=== PATIENT | male | born 1960 | race Caucasian/White ===

== ENCOUNTER 2016-09-07 13:19 | Emergency (ER) | payer MEDICAID ==
[2016-09-07 13:31] VITALS: BP 137/79; PULSE 81; RESP 16; TEMP 98.4; O2SAT 93
--- NOTE | 2016-09-07 14:04 | EDPHY ---
H & P Time Seen by Provider: 09/07/16 13:42 HPI/ROS: CHIEF COMPLAINT: Laceration left forearm HISTORY OF PRESENT ILLNESS: 56-year-old male presents to the emergency department by private vehicle with a laceration to his left forearm. The patient states just prior to arrival he was playing with a new pocket knife and accidentally cut his left forearm. The incident happened just prior to arrival. He is right-hand dominant. He believes his tetanus shot is current. He has no other complaints. ROS: Denies numbness or tingling in his fingers, pain in his left wrist or elbow. Past Medical/Surgical History: Depression, hypertension, PTSD, angio Social History: Single and lives in [place] Smoking Status: Heavy smoker Physical Exam: On examination the patient has 3 cm laceration to the volar aspect of the left medial forearm. No active bleeding noted. No evidence of tendon injury. Full range of motion of the left fingers. Normal sensation to light touch with normal 2 point discrimination. Strong radial pulse at the left wrist. No palpable bony tenderness. No evidence of retained foreign body. Constitutional: Initial Vital Signs Temperature (C) 36.9 C 09/07/16 13:29 Heart Rate 81 09/07/16 13:29 Respiratory Rate 16 09/07/16 13:29 Blood Pressure 137/79 H 09/07/16 13:29 O2 Sat (%) 93 09/07/16 13:29 O2 Delivery Mode Room Air Allergies/Adverse Reactions: No Known Allergies Allergy (Verified 09/07/16 13:28) Home Medications: Medication Instructions Recorded ARIPiprazole [Abilify 10 mg (*)] 10 mg PO DAILY 09/27/12 Aspirin EC [Aspirin EC 81 mg (*)] 81 mg PO DAILY 09/27/12 Carvedilol Cr [Coreg Cr] 20 mg PO DAILY 09/27/12 Citalopram [celeXA 20 MG (RX)] 40 mg PO DAILY 09/27/12 Simvastatin [Zocor 40 mg] 40 mg PO DAILY 09/27/12 amLODIPine BESYLATE [Norvasc 10 mg 10 mg PO DAILY 09/27/12 (*)] Lisinopril/Hctz 10/12.5 mg 1 ea PO DAILY 07/23/15 [Zestoretic/Prinzide 10/12.5MG (*)] buPROPion SR [Wellbutrin 150mg SR 300 mg PO DAILY 07/23/15 (*)] MDM/Departure - MDM Procedures: Laceration repair. Verbal consent was obtained from the patient. The 3 cm laceration on the left forearm was anesthetized using 1% lidocaine with epinephrine. The wound was irrigated with saline, draped and explored to its base with a gloved finger. There were no deep structures involved. No tendon injury was identified. The wound was repaired with 4 0 Ethilon, 7 sutures. The wound repair was simple. The procedure was performed by myself. ED Course/Re-evaluation: 56-year-old male presents with forearm laceration. Wound was repaired, see procedure note. The patient was given wound care precautions. - Depart Disposition: Home, Routine, Self-Care Clinical Impression: Laceration of left forearm Qualifiers: Encounter type: initial encounter Qualified Code(s): S51.812A - Laceration without foreign body of left forearm, initial encounter Condition: Good Instructions: Laceration (ED), Care For Your Stitches (ED), Acute Wounds (ED) Additional Instructions: Wound Care Follow-Up: Removal of sutures in 10 days. Suture removal is complimentary in uncomplicated cases. Infection or abnormal findings would require reevaluation by the MD. In that case, you may be billed. Return if you notice any signs or symptoms of infection such as redness, swelling, increased pain, fever, purulent drainage. Referrals: Kellen Tobar PA [Primary Care Provider] - As per Instructions
== END 2016-09-07 14:33 | disposition home or self-care (01) ==
PROC: 0HQEXZZ Repair Left Lower Arm Skin, External Approach (ICD-10-PCS; principal; 2016-09-07)
DX: S51.812A Laceration without foreign body of left forearm, initial encounter (principal); I10 Essential (primary) hypertension; F17.200 Nicotine dependence, unspecified, uncomplicated; Z79.82 Long term (current) use of aspirin; W26.0XXA Contact with knife, initial encounter

== ENCOUNTER 2017-02-10 10:31 | Emergency (ER) | payer MEDICAID ==
[2017-02-10] MEDS ORDERED: NS 500 ML IV ONE (10:54)
[2017-02-10 11:03] LABS: % IMMATURE GRANULYOCYTES 0.3 % (0.0-1.1); ABSOLUTE IMMATURE GRANULOCYTES 0.03 10^3/uL (0.00-0.10); ADD DIFF? NO; ADD MORPH? NO; ADD SCAN? NO; ATYPICAL LYMPHOCYTE FLAG 0 (0-99); FRAGMENT RBC FLAG 0 (0-99); HEMATOCRIT 42.8 % (40.0-51.0); LEFT SHIFT FLG 0 (0-99); LIPEMIA HEMOLYSIS FLAG 90 (0-99); MEAN CELL HEMOGLOBIN 31.8 pg (27.9-34.1); MEAN CELL VOLUME 90.7 fL (81.5-99.8); MEAN PLATELET VOLUME 9.3 fL (8.7-11.7); PLATELET CLUMPS FLAG 0 (0-99); PLATELET COUNT 358 10^3/uL (150-400); RED BLOOD CELL COUNT 4.72 10^6/uL (4.40-6.38); RED CELL DISTRIBUTION WIDTH 15.2 % (11.5-15.2)
--- NOTE | 2017-02-10 11:04 | CPEKG ---
Heart Rate: 74 RR Interval: 811 P-R Interval: 148 QRSD Interval: 108 QT Interval: 404 QTC Interval: 449 P [place]: 59 QRS [place]: 33 T Wave [place]: 50 EKG Severity - ABNORMAL ECG - EKG Impression: SINUS RHYTHM EKG Impression: INCOMPLETE RIGHT BUNDLE BRANCH BLOCK Electronically Signed By: Yazmin Rea 10-Feb-2017 15:04:13
[2017-02-10 11:12] LABS: ANION GAP 16 mEq/L (8-16); CALCIUM 10.2 mg/dL (8.5-10.4); CARBON DIOXIDE 25 mEq/l (22-31); CHLORIDE 104 mEq/L (97-110); CREATININE 0.8 mg/dL (0.7-1.3); GLOMERULAR FILTRATION RATE > 60; GLUCOSE 101 mg/dL (70-100); POTASSIUM 4.3 mEq/L (3.5-5.2); SODIUM 145 mEq/L (134-144)
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
[2017-02-10 11:24] LABS: TROPONIN I < 0.012 ng/mL (0.000-0.034)
[2017-02-10 12:04] LABS: ETHANOL SERUM < 10 mg/dL (0-10)
[2017-02-10] MEDS ORDERED: QUEtiapine FUMARATE 200 MG TAB PO ONE (18:00)
[2017-02-10] MEDS ORDERED: ARIPiprazole 5 MG TAB PO SCH (18:15)
[2017-02-10] MEDS ORDERED: ARIPiprazole 5 MG TAB PO ONE (18:30)
[2017-02-11 06:54] VITALS: TEMP 98.1
[2017-02-11] MEDS ORDERED: ARIPiprazole 10 MG TAB PO ONE (07:41)
[2017-02-11 11:36] VITALS: BP 133/70; PULSE 66; RESP 14; O2SAT 96
[2017-02-11] MEDS ORDERED: ARIPiprazole 5 MG TAB PO ONE (18:00)
== END 2017-02-11 11:35 | disposition home or self-care (01) ==
LOC: EDUNIT#
DX: F33.9 Major depressive disorder, recurrent, unspecified (principal); I25.10 Atherosclerotic heart disease of native coronary artery without angina pectoris; F17.200 Nicotine dependence, unspecified, uncomplicated; E86.9 Volume depletion, unspecified; Z79.82 Long term (current) use of aspirin
CPT/HCPCS: 80305; G0480

== ENCOUNTER 2017-03-25 06:39 | Emergency (ER) | payer MEDICAID ==
[2017-03-25 06:49] VITALS: RESP 16
--- NOTE | 2017-03-25 07:39 | EDPHY ---
H & P Time Seen by Provider: 03/25/17 07:00 HPI/ROS: HPI Cat bite to left hand. 56-year-old male by private vehicle. This patient reports that he was bitten by a cat on the dorsal mid aspect of his left hand 2 days ago. He was seen at [facility] yesterday. He was given a tetanus shot at that time and was started on Augmentin. He reports that he has had 2 doses of Augmentin. He has not taken his morning dose today. He complains of pain to the dorsal aspect of the left hand where he was bitten and he reports that he has developed some redness and swelling to this area. He is not diabetic or immune compromised. ROS: Constitutional: No fever, no chills. No weakness. Musculoskeletal: No back pain. No neck pain. No myalgias or arthralgias. As above. Skin: As above. Neurological: No focal weakness or altered sensation. Past medical history: Coronary artery disease, hypertension, PTSD, depression, shoulder surgery. He is a [facility] client. His primary care is through [facility]. Social history: He is here by himself. He lives in housing provided to him by [employer]. Nonsmoker. Denies IV drugs, alcohol or street drugs. Physical Exam: General Appearance: Alert, no distress. This patient is responding to questions appropriately and in full sentences. This patient appears well- hydrated and well-nourished. Eyes: Pupils equal and round no pallor or injection. No lid edema, erythema or injection. Left hand exam: Significant for 2 scabbed over puncture alfonso about 2.5 cm apart from each other mid dorsal metatarsal area. No associated fluctuance or abscess noted on gross inspection. He does have a diffuse erythema and mild swelling to the dorsal aspect of the hand. This was demarcated with a tissue marker pen. This does not spread beyond the wrist. It only involves the dorsal aspect of the hand and distal wrist. No edema beyond erythema. No circumferential erythema. There is no lymphangitis ache streaking. No axillary lymphadenopathy. The left upper extremity is neurovascularly intact. Respiratory: There are no retractions, lungs are clear to auscultation with good air movement bilaterally. Cardiovascular: Regular rate and rhythm. No murmur. Neurological: Motor sensory function is grossly intact. Cranial nerves are normal. Gait is normal. Skin: Warm and dry, as above, otherwise no rashes.. Extremities are symmetrical. All joints range without pain or impingement except noted. Psychiatric: No agitation. No depression. Database: EKG: Imaging: Left hand x-ray series: Negative for fracture, subluxation, dislocation. No radiopaque foreign body. Interpreted by me. Procedures: Emergency department course: Vital signs reviewed. He is afebrile. Moderately hypertensive. Borderline tachycardic in triage. Not tachycardic on my exam. Area of erythema on the left hand was demarcated with a tissue marker pen. Left hand x-rays to be obtained to evaluate for foreign body. 8:15 a.m., patient re-evaluated. Resting comfortably. Results of x-rays discussed with him. Patient remains afebrile. Vital signs normal at this time. I do not feel he requires admission at this time but close follow-up is necessary. Plan will be to discharge him to home. He has been instructed to continue his Augmentin as prescribed. I will have him return to the emergency department this evening in 12 hr for a recheck of his left hand. He endorses this plan. Immediate return to emergency department precautions reviewed. All of his questions were answered. He was discharged in good condition. Differential Diagnosis: The differential diagnosis on this patient includes but is not limited to left hand cat bite, cellulitis of the left hand. This represents a partial list of diagnoses considered. These considerations are based on history, physical exam , past history, reassessment and diagnostic testing. Smoking Status: Heavy smoker Constitutional: Initial Vital Signs Temperature (C) 36.5 C 03/25/17 06:47 Heart Rate 105 H 03/25/17 06:47 Respiratory Rate 16 03/25/17 06:47 Blood Pressure 151/91 H 03/25/17 06:47 O2 Sat (%) 94 03/25/17 06:47 O2 Delivery Mode Room Air Allergies/Adverse Reactions: No Known Allergies Allergy (Verified 09/07/16 13:28) Home Medications: Medication Instructions Recorded ARIPiprazole [Abilify 10 mg (*)] 10 mg PO DAILY 09/27/12 Aspirin EC [Aspirin EC 81 mg (*)] 81 mg PO DAILY 09/27/12 Carvedilol Cr [Coreg Cr] 20 mg PO DAILY 09/27/12 Citalopram [celeXA 20 MG (RX)] 40 mg PO DAILY 09/27/12 Simvastatin [Zocor 40 mg] 40 mg PO DAILY 09/27/12 amLODIPine BESYLATE [Norvasc 10 mg 10 mg PO DAILY 09/27/12 (*)] Lisinopril/Hctz 10/12.5 mg 1 ea PO DAILY 07/23/15 [Zestoretic/Prinzide 10/12.5MG (*)] buPROPion SR [Wellbutrin 150mg SR 300 mg PO DAILY 07/23/15 (*)] Departure - Departure Disposition: Home, Routine, Self-Care Clinical Impression: Cat bite of left hand, Cellulitis of left hand Condition: Good Instructions: Cellulitis (ED), Animal Bite (ED) Additional Instructions: Read and follow provided instructions. Return to the emergency department this evening at 8:00 p.m. for recheck of your left hand as discussed. It is very important you do this. Take medication as prescribed. Continue Augmentin twice daily. Take your next dose this evening at 6:00 p.m.. It is very important you take this medication. Ibuprofen dosin mg every 6 hours with meals for the next 3 days only. Return to the emergency department immediately for redness and swelling spreading up your arm, fever, worsening pain or other serious concerns. Referrals: Kellen Tobar PA [Primary Care Provider] - As per Instructions
[2017-03-25 08:41] VITALS: BP 154/90; PULSE 91; TEMP 99; O2SAT 93
== END 2017-03-25 08:40 | disposition home or self-care (01) ==
DX: S61.452A Open bite of left hand, initial encounter (principal); L03.114 Cellulitis of left upper limb; I25.10 Atherosclerotic heart disease of native coronary artery without angina pectoris; I10 Essential (primary) hypertension; F17.200 Nicotine dependence, unspecified, uncomplicated; Z79.82 Long term (current) use of aspirin; W55.01XA Bitten by cat, initial encounter

== ENCOUNTER 2017-03-25 19:37 | Inpatient (IN) | payer MEDICAID ==
--- NOTE | 2017-03-25 20:58 | EDPHY ---
H & P Stated Complaint: cat bite- [facility] Source: Patient, Family - Personal History Current Tetanus/Diphtheria Vaccine: Yes - Medical/Surgical History Hx Asthma: No Hx Chronic Respiratory Disease: No Hx Diabetes: No Hx Cardiac Disease: Yes Hx Renal Disease: No Hx Cirrhosis: No Hx Alcoholism: No Hx HIV/AIDS: No Hx Splenectomy or Spleen Trauma: No Other PMH: ANGIO 8 YRS AGO;HTN;PTSD;DEPRESSION. PSH- L SHLDR, R SHOULDER - Social History Smoking Status: Heavy smoker Time Seen by Provider: 03/25/17 20:58 HPI/ROS: HPI: This is a 56-year-old male who presents with Chief Complaint: Cat bite follow-up Location: Left hand Quality: Cat bite Duration: 2 days Signs and Symptoms: No bleeding, no radiation, no numbness, no weakness, no tingling, + decreased range of motion, + swelling, + pain Timing: Worsening Severity: Moderate to severe Context: Patient is right-hand dominant, he was bitten by a Cat on the dorsal left hand 2 days ago. He returns today for wound check. He reports that the redness is worsening along with worsening decreased range of motion. He has been taking Augmentin 875 twice daily x2 days without relief. He was seen in the emergency room approximately 12 hr ago and advised to return for follow-up. Patient was seen at [facility] yesterday and given a tetanus shot and started on Augmentin for which he reports compliance. Modifying Factors: See above Comment: ROS: see HPI Constitutional: No fever, no chills, no weight loss Eyes: No blurred vision Respiratory: No shortness of breath, no cough Cardiovascular: No chest pain Gastrointestinal: No nausea, no vomiting no diarrhea Genitourinary: No dysuria Extremities: No myalgias Neurologic: No weakness, no numbness Skin: No rashes Hematologic: No bruising, no bleeding MEDICAL/SURGICAL/SOCIAL HISTORY: Medical history: Coronary artery disease, hypertension, PTSD, depression. PCP is [facility]. Surgical history: Shoulder surgery Social history: Lives in housing provided by [facility]. Nonsmoker. Denies IV drug use, alcohol or street drugs. CONSTITUTIONAL: Pleasant nontoxic appearing adult white male, awake and alert, no obvious distress HEENT: Atraumatic and normocephalic, PERRL, EOMI. Tympanic membranes clear. Oropharynx clear, no exudate and moist pink mucosa. Airway patent. No lymphadenopathy. No meningismus. Cardiovascular: Normal S1/S2, regular rate, regular rhythm, without murmur rub or gallop. PULMONARY/CHEST: Symmetrical and nontender. Clear to auscultation bilaterally. Good air movement. No accessory muscle usage. ABDOMEN: Soft, nondistended, nontender, no rebound, no guarding, no peritoneal signs, no masses or organomegaly. No CVAT. EXTREMITIES: 2/2 radial pulses, strength 5/5, left dorsal mid aspect of left hand extending into all 5 fingers shows moderate erythema; 2 scabbed over puncture alfonso are noted approximately 2.5 cm apart from each other on the mid dorsal metatarsal area. No associated fluctuance. Erythema is outside the marker of the tissue marker pen. Erythema does not spread beyond the wrist. Patient is unable to fully extend at his MCP joints due to the swelling and pain. no deformities, no clubbing, no cyanosis or edema. NEUROLOGICAL: no focal neuro deficits. GCS 15. SKIN: Warm and dry, no erythema. no rash. Good capillary refill. (Tanner,Terra) Constitutional: Initial Vital Signs Temperature (C) 36.6 C 03/25/17 19:44 Heart Rate 89 03/25/17 19:44 Respiratory Rate 18 03/25/17 19:44 Blood Pressure 148/77 H 03/25/17 19:44 O2 Sat (%) 96 03/25/17 19:44 O2 Delivery Mode Room Air Allergies/Adverse Reactions: No Known Allergies Allergy (Verified 03/25/17 19:46) Home Medications: Medication Instructions Recorded ARIPiprazole [Abilify 10 mg (*)] 10 mg PO DAILY 09/27/12 Aspirin EC [Aspirin EC 81 mg (*)] 81 mg PO DAILY 09/27/12 Citalopram [celeXA 20 MG (RX)] 40 mg PO DAILY 09/27/12 buPROPion SR [Wellbutrin 150mg SR 300 mg PO DAILY 07/23/15 (*)] Albuterol [Proventil Inhaler HFA 1 - 2 puffs IH Q4H 03/25/17 (*)] Amoxicillin/Clavulanate Pot 875 mg PO BID 03/25/17 [Augmentin 875 MG TAB (*)] Atorvastatin Calcium [Lipitor 40 40 mg PO HS 03/25/17 mg (*)] Ipratropium/Albuterol [Combivent 1 inh IH QID 03/25/17 Respimat Inhal [place](*)] Medical Decision Making ED Course/Re-evaluation: Labs, blood cultures, IV fluids, IV medications ordered Given IV Unasyn . Patient has failed outpatient therapy and will need IV antibiotics and admission to the hospital with hand consult. 2150: ED decision to consult for admission. Spoke with Hand, Dr. Herrera, who kindly agrees to consult. Spoke with Hospitalist, Dr. Gutierres kindly agrees to admit patient for IV antibiotics and further management. This patient was seen under the supervision of my secondary supervising physician. I evaluated care for this patient independently. Discussed this patient with Dr. Church who did not see the patient. Patient's presentation, labs/imaging, treatment and plan of care were discussed with secondary supervising physician. (Phyllis Hart) I did not see this patient while he was in the emergency department. However his care was discussed with the PA while the patient was in the department. I agree with treatment plan and management. I am the secondary supervising physician (Peter Church) Differential Diagnosis: Differential diagnosis includes but is not limited to animal bite, hand cellulitis, tenosynovitis. (Phyllis Hart) Departure - Departure Disposition: [facility] Inpatient Acute Clinical Impression: Cellulitis of left hand Cat bite of hand Qualifiers: Encounter type: initial encounter Laterality: left Qualified Code(s): S61.452A - Open bite of left hand, initial encounter Condition: Fair
[2017-03-25] MEDS ORDERED: NS 1,000 ML IV ONE (21:17)
[2017-03-25] MEDS ORDERED: AMPICILLIN/SULBACTAM 1.5 GM in NS 50 ML IV ONE (21:25)
[2017-03-25] MEDS ORDERED: ACETAMINOPHEN 325 MG TAB PO PRN (22:21)
[2017-03-25] MEDS ORDERED: ONDANSETRON DISINTEGRATING 4 MG TAB PO PRN (22:21)
[2017-03-25] MEDS ORDERED: ONDANSETRON 4 MG/2 ML VIAL IVP PRN (22:21)
[2017-03-25 22:23] LABS: PLATELET COUNT 254 10^3/uL (150-400)
--- NOTE | 2017-03-25 22:52 | PDGENHP ---
History and Physical - Chief Complaint Hand pain - History of Present Illness 56 yo M w/ CAD, ?COPD, and depression presents w/ L hand infection. Patient was bit on the dorsal aspect of his L hand by his cat 2 days ago. He was started on Augment for this yesterday but the pain and redness spread despite compliance. Patient complains of some chills but denies clear fevers. He has no other complaints today. History Information - Allergies/Home Medication List Allergies/Adverse Reactions: No Known Allergies Allergy (Verified 03/25/17 19:46) Home Medications: ARIPiprazole [Abilify 10 mg (*)] 10 mg PO DAILY 09/27/12 [Last Taken 07/23/15] Aspirin EC [Aspirin EC 81 mg (*)] 81 mg PO DAILY 09/27/12 [Last Taken 07/23/15] Citalopram [celeXA 20 MG (RX)] 40 mg PO DAILY 09/27/12 [Last Taken 07/23/15] buPROPion SR [Wellbutrin 150mg SR (*)] 300 mg PO DAILY 07/23/15 [Last Taken ] Albuterol [Proventil Inhaler HFA (*)] 1 - 2 puffs IH Q4H 03/25/17 [Last Taken Unknown] Amoxicillin/Clavulanate Pot [Augmentin 875 MG TAB (*)] 875 mg PO BID 03/25/17 [ Last Taken Unknown] Atorvastatin Calcium [Lipitor 40 mg (*)] 40 mg PO HS 03/25/17 [Last Taken Unknown] Ipratropium/Albuterol [Combivent Respimat Inhal [place](*)] 1 inh IH QID 03/25/17 [Last Taken Unknown] I have personally reviewed and updated: family history, medical history - Past Medical History coronary artery disease, COPD Additional medical history: Depression - Family History Additional family history: Asked, does not know family - Social History Smoking Status: Heavy smoker Review of Systems Review of Systems: ROS: 10pt was reviewed & negative except for what was stated in HPI & below Physical Exam Physical Exam: Temp Pulse Resp BP Pulse Ox 36.6 C 89 18 148/77 H 96 03/25/17 19:44 03/25/17 19:44 03/25/17 19:44 03/25/17 19:44 03/25/17 19:44 Constitutional: no apparent distress, not in pain Eyes: PERRL, EOMI Ears, Nose, Mouth, Throat: moist mucous membranes, no oral mucosal ulcers Cardiovascular: regular rate and rhythym, no murmur, rub, or gallop Respiratory: no respiratory distress, clear to auscultation Gastrointestinal: normoactive bowel sounds, soft, non-tender abdomen Skin: warm, other (2 bite wounds notable on dorsal aspect of L hand with surrounding erythema and mild swelling) Neurologic: AAOx3, CN II-XII Intact Psychiatric: interacting appropriately, not anxious Lab Data & Imaging Review 03/25/17 22:18 03/25/17 22:18 WBC 9.89 10^3/uL (3.80-9.50) H 03/25/17:18 RBC 4.47 10^6/uL (4.40-6.38) 03/25/17 22:18 Hgb 14.1 g/dL (13.7-17.5) 03/25/17 22:18 Hct 40.2 % (40.0-51.0) 03/25/17 22:18 MCV 89.9 fL (81.5-99.8) 03/25/17 22:18 MCH 31.5 pg (27.9-34.1) 03/25/17:18 MCHC 35.1 g/dL (32.4-36.7) 03/25/17 22:18 RDW 14.6 % (11.5-15.2) 03/25/17:18 Plt Count 254 10^3/uL (150-400) 03/25/17 22:18 MPV 9.2 fL (8.7-11.7) 03/25/17 22:18 Neut % (Auto) 58.7 % (39.3-74.2) 03/25/17:18 Lymph % (Auto) 23.3 % (15.0-45.0) 03/25/17:18 [place] % (Auto) 11.8 % (4.5-13.0) 03/25/17 22:18 Eos % (Auto) 5.3 % (0.6-7.6) 03/25/17:18 Baso % (Auto) 0.5 % (0.3-1.7) 03/25/17 22:18 Nucleat RBC Rel Count 0.0 % (0.0-0.2) 03/25/17 22:18 Absolute Neuts (auto) 5.81 10^3/uL (1.70-6.50) 03/25/17 22:18 Absolute Lymphs (auto) 2.30 10^3/uL (1.00-3.00) 03/25/17:18 Absolute Monos (auto) 1.17 10^3/uL (0.30-0.80) H 03/25/17 22:18 Absolute Eos (auto) 0.52 10^3/uL (0.03-0.40) H 03/25/17:18 Absolute Basos (auto) 0.05 10^3/uL (0.02-0.10) 03/25/17:18 Absolute Nucleated RBC 0.00 10^3/uL (0-0.01) 03/25/17:18 Immature Gran % 0.4 % (0.0-1.1) 03/25/17:18 Immature Gran # 0.04 10^3/uL (0.00-0.10) 03/25/17:18 ESR 10 MM/HR (0-20) 03/25/17 22:18 Sodium 140 mEq/L (135-145) 03/25/17:18 Potassium 3.9 mEq/L (3.5-5.2) 03/25/17:18 Chloride 104 mEq/L (97-110) 03/25/17:18 Carbon Dioxide 24 mEq/l (22-31) 03/25/17:18 Anion Gap 12 mEq/L (8-16) 03/25/17:18 BUN 12 mg/dL (7-23) 03/25/17:18 Creatinine 0.8 mg/dL (0.7-1.3) 03/25/17:18 Estimated GFR > 60 03/25/17:18 Glucose 83 mg/dL (70-100) 03/25/17:18 Calcium 9.3 mg/dL (8.5-10.4) 03/25/17 22:18 C-Reactive Protein 32.5 mg/L (<10.0) H 03/25/17 22:18 Assessment & Plan Assessment: 56 yo M w/ CAD and ?COPD presents with cellulitis of L hand 2/2 cat bite. Plan: 1. L hand cellulitis - Likely complicated by associated abscess. Redness and swelling progressing despite appropriate outpatient treatment with Augmentin. Laboratory work-up shows elevated CRP but no other clear signs or symptoms of systemic involvement currently. - IV Unasyn, blood cultures ordered - Hand surgery consulted, will perform bedside I&D tonight and follow along, appreciate assistance 2. CAD - Reports hx of [place] about 9 years ago, has been doing well since. Compliant with ASA and statin. 3. ?COPD - Patient denies formal dx but has 25+ year smoking history and takes Combivent QID. 4. Tobacco abuse - Smokes 1/2 PPD 5. Depression - Well controlled, compliant with home meds. Diet - Regular Code - Full Ppx - SCDs Dispo - Admit to observation status
[2017-03-25] MEDS ORDERED: AMPICILLIN/SULBACTAM 3 GM in NS 100 ML IV ONE (23:27)
--- NOTE | 2017-03-26 03:14 | GCON ---
[f rep st] CONSULTATION DATE OF CONSULTATION: 03/25/2017 This is a consultation for Dr. Hart in the ER. CHIEF COMPLAINT: Left dorsal hand redness and swelling. HISTORY OF PRESENT ILLNESS: This is a patient who was bitten by his cat 2 days ago. The following n ight, he awoke with severe pain and has had increasing redness and swelling. He was seen in the ER y esterday, first in the [facility] and then in the ER. He was prescribed Augmentin 875 twice a da y. He was told to come for a wound check if it was worsening. Today he presented for a wound check with increasing redness and worsening range of motion. I was consulted for evaluation. The hospital ist service was contacted by the ER staff for admission. REVIEW OF SYSTEMS: 10-point review of systems is negative except for as noted above. PAST MEDICAL HISTORY: He has history of coronary artery disease, hypertension, posttraumatic stress disorder, and depression. PAST SURGICAL HISTORY: He has had shoulder history. SOCIAL HISTORY: He lives in housing provided by [facility]. He denies IV drug use. He is a nonsmoker. LABORATORY DATA: He has elevated white count of 9.89 and an elevated CRP at 32.5. PHYSICAL EXAMINATION: VITAL SIGNS: Normal apart from hypertension. GENERAL: He is alert and orien pablito x3, lying in his bed, in no acute distress. CARDIOVASCULAR: He has less than 2-second capillary refill in his extremities. PULMONARY: Chest rise equal and unlabored bilaterally. EXTREMITIES: L eft hand: Over the left hand, he has diffuse erythema extending from about the MP joints down to jus t proximal to his dorsal wrist crease. There are 2 puncture wounds dorsally over his wrist from his cat bite. These are now dry with an eschar. There is a bogginess under these bite alfonso. He has in tense pain to palpation over the entire dorsal wrist. He rests his hand in the position of mid flexi on. He has intense pain with any attempts of extension, passively or actively, and with flexion of h is digits all over the dorsal surface. His digits are well perfused, and his sensation is intact. IMAGING DATA: Per report from ER staff, there were no foreign bodies in the hand on x-rays done yest erday. ASSESSMENT AND PLAN: Left hand cellulitis due to cat bite and possible abscess. The worsening redne ss and swelling despite antibiotics and pain with any active extension of the digits is concerning fo r an abscess forming over the dorsal hand. Recommend incision and drainage. Discussed with the namrata ent the risks and benefits, and he wished to proceed. I and D was performed by me at bedside in the ER. Please see details of the procedure report. There was purulent material from both puncture site s. Cultures were taken. These wounds were copiously irrigated and packed and wrapped in gauze. He is to be started on Unasyn. The patient will be followed by the hospitalist service. I will follow him in the hospital and then see him tomorrow to assess the wound. /[id number]/MODL
--- NOTE | 2017-03-26 03:34 | GOP ---
[f rep st] OPERATIVE REPORT DATE OF OPERATION: 03/25/2017 SURGEON: Marcio Herrera MD ANESTHESIA: Local. PREOPERATIVE DIAGNOSIS: Left dorsal hand abscess due to cat bite. POSTOPERATIVE DIAGNOSIS: Left dorsal hand abscess due to cat bite. PROCEDURE PERFORMED: Left hand dorsal abscess incision and drainage, complex, as it was in 2 sites. FINDINGS: ESTIMATED BLOOD LOSS: Less than 2 cc. INDICATIONS: This is a 56-year-old male who was bitten by a cat 2 days ago. He presents for a follo wup after being seen in the ER yesterday today due to worsening redness, pain, and swelling of his trejo nd. His exam was concerning for early abscess formation. Thus, I recommended urgent I and D. I hav e discussed with him the risks and benefits. Risks include pain, bleeding, scarring, persistent infe ction, and need for further procedures. He understood the risks and wished to proceed. DESCRIPTION OF PROCEDURE: Verbal consent was obtained. Local anesthesia was given with 0.5% lidocai ne with epinephrine. This was infiltrated around the puncture sites. The iris scissors were used to unroof the eschars, with purulent material expressed from both puncture sites. The cultures were ta ilya. A 15 blade was then used to extend the puncture sites in both wounds, and then debridement was performed sharply with scissors of any purulent appearing material. A syringe was then used to copio usly irrigate with sterile saline. Packing strips were then applied. A sterile dressing was applied . He tolerated the procedure well. POSTOPERATIVE CONDITION: Stable. POSTOPERATIVE PLAN: The patient will be admitted to the hospitalist service. I will follow him in [facility] tomorrow. The package was reviewed with him and he is to start on t.i.d. soprice. /[id number]/MODL
[2017-03-26 06:37] LABS: PLATELET COUNT 255 10^3/uL (150-400)
[2017-03-26] MEDS: AMPICILLIN/SULBACTAM 3 GM in NS 100 ML IV SCH ×4 (06:45→23:47)
--- NOTE | 2017-03-26 11:00 | SOAPPROG ---
SOAP Progress Note Assessment/Plan: Assessment: L hand abscess 2/2 cat bite, I&D'd last night -he still has pain in the hand, however objectively he is able to move the fingers more Plan: -IV unasyn -f/u cultures -start soaks this am as ordered -f/u in one week after d/c -I will cont to follow the pt in the hospital 03/26/17 10:02 Subjective: Sleeping in the ER bed this am. He complains that the pain in his hand is unchanged Objective: Vital Signs Temp Pulse Resp BP Pulse Ox 37.1 C 77 19 124/83 H 92 03/26/17 08:54 03/26/17 08:54 03/26/17 08:54 03/26/17 08:54 03/26/17 08:54 Microbiology 03/25/17 22:45 Gram Stain - Final Hand - Swab Laboratory Results 03/26/17 06:10 03/26/17 06:10 03/25/17 03/26/17 03/27/17 05:59 05:59 05:59 Intake Total 1100 Balance 1100 Gen: NAD, asleep L hand -hand is wrapped -he is able to tolerated near full extension of his digits, which is an improvement from yesterday -hand well perfused - Time Spent With Patient Time Spent With Patient: 10 min ICD10 Worksheet Patient Problems: Problems Problem Status Onset Cat bite of hand Acute Cellulitis of left hand Acute
[2017-03-26] MEDS: HYDROGEN PEROXIDE 236 ML BOTTLE TP SCH ×3 (13:19→21:01)
[2017-03-26] MEDS ORDERED: ALBUTEROL 60 PUFFS/8 GM MDI IH SCH (14:00)
--- NOTE | 2017-03-26 15:24 | HOSPPROG ---
Hospitalist Progress Note Assessment/Plan: 56 yo M w/ CAD and ?COPD presents with cellulitis of L hand 2/2 cat bite. First encounter,chart reviewed. Plan: 1. L hand cellulitis - Likely complicated by associated abscess. Redness and swelling progressing despite appropriate outpatient treatment with Augmentin. Laboratory work-up shows elevated CRP but no other clear signs or symptoms of systemic involvement currently. IV Unasyn, blood cultures ordered Hand surgery consulted, will performed bedside I&D, appreciate assistance 2. CAD - Reports hx of [place] about 9 years ago, has been doing well since. Compliant with ASA and statin. 3. ?COPD - Patient denies formal dx but has 25+ year smoking history and takes Combivent QID. 4. Tobacco abuse - Smokes 1/2 PPD 5. Depression - Well controlled, compliant with home meds. Diet - Regular Code - Full Ppx - SCDs Dispo - change to inpt requires further monitoring and IV abx Subjective: Feeling well. Still having pain in hand. Objective: Vital Signs Temp Pulse Resp BP Pulse Ox 36.6 C 63 16 135/77 H 93 03/26/17 12:30 03/26/17 12:30 03/26/17 12:30 03/26/17 12:30 03/26/17 12:30 Microbiology 03/25/17 22:45 Gram Stain - Final Hand - Swab Laboratory Results 03/26/17 06:10 03/26/17 06:10 03/25/17 03/26/17 03/27/17 05:59 05:59 05:59 Intake Total 1100 Balance 1100 - Physical Exam Constitutional: no apparent distress, appears nourished, uncomfortable Eyes: PERRL, anicteric sclera, EOMI Ears, Nose, Mouth, Throat: moist mucous membranes, hearing normal, ears appear normal Cardiovascular: regular rate and rhythym, No JVD, No edema Respiratory: no respiratory distress, no rales or rhonchi, reduced air movement Gastrointestinal: normoactive bowel sounds, No tenderness, No ascites Skin: warm, erythema, No mottled Musculoskeletal: full muscle strength, normal joint ROM, pain with ROM Neurologic: AAOx3 Psychiatric: interacting appropriately, not anxious, not encephalopathic, thought process linear ICD10 Worksheet Patient Problems: Problems Problem Status Onset Cellulitis of left hand Acute Cat bite of hand Acute
--- NOTE | 2017-03-26 15:55 | PDMN ---
Medical Necessity Medical necessity: change to IP; los>2mn for L hand cellulitis r/t cat bite, likely complicated by associated abscess, and failed OP rx; requires further monitoring , hand consult for I&D @ bedside, IV abx, follow cx's; comorbid CAD, ? COPD, and depression; per order and progress note 03/26/17
[2017-03-26] MEDS: CITALOPRAM 20 MG TAB PO SCH (16:16)
[2017-03-26] MEDS: ARIPiprazole 10 MG TAB PO SCH (16:17)
[2017-03-26] MEDS: ASPIRIN EC 81 MG TAB PO SCH ×2 (16:17→16:18)
[2017-03-26] MEDS: buPROPion SR 150 MG TAB PO SCH (16:18)
[2017-03-26] MEDS: ALBUTEROL 200 PUFFS/18 GM MDI IH SCH ×3 (16:25→23:47)
--- NOTE | 2017-03-26 16:57 | ASMTCMCOM ---
CM Note CM Note Notes: Pt admitted for hand cellulits from cat bite. He states he is currently a pt of [facility] and part of their transitional housing program until he is able to move into his own apt which he says is next . He is concerned about losing his spot in this program b/c he missed his therapy apt this morning due to his hospitalization. He said he tried to notify Anahy Santana ([phone]), healthcare receptionist w/[facility] but was unable to reach. I also put call out to her and left voicemail. Pt is concerned about having a place to go when he gets dc'd and is hoping he doesn't lose his spot in the transitional program w/[facility]. He stated that he is currently involved as a witness for the defense in a big trial. Pt hoping to receive call back from [facility] and determine if he can stay there. CM will follow and may have to reach out to [facility] again tomorrow. Date Signed: 03/26/2017 04:56 PM Electronically Signed By:Nishi Cisse RN
[2017-03-26] MEDS: ATORVASTATIN CALCIUM 40 MG TAB PO SCH (20:27)
[2017-03-26] MEDS: IPRATROPIUM/ALBUTEROL 4GM MDI IH SCH ×2 (20:38→20:39)
[2017-03-27] MEDS: ALBUTEROL 200 PUFFS/18 GM MDI IH SCH ×2 (05:58→06:00)
[2017-03-27] MEDS: AMPICILLIN/SULBACTAM 3 GM in NS 100 ML IV SCH ×4 (05:59→23:39)
[2017-03-27] MEDS: IPRATROPIUM/ALBUTEROL 4GM MDI IH SCH ×4 (06:18→21:08)
[2017-03-27] MEDS ORDERED: ALBUTEROL 200 PUFFS/18 GM MDI IH PRN (09:00)
[2017-03-27] MEDS: ARIPiprazole 10 MG TAB PO SCH (09:09)
[2017-03-27] MEDS: ASPIRIN EC 81 MG TAB PO SCH (09:10)
[2017-03-27] MEDS: CITALOPRAM 20 MG TAB PO SCH (09:11)
[2017-03-27] MEDS: HYDROGEN PEROXIDE 236 ML BOTTLE TP SCH ×3 (09:11→21:15)
[2017-03-27] MEDS: buPROPion SR 150 MG TAB PO SCH (09:11)
--- NOTE | 2017-03-27 11:49 | SOAPPROG ---
SOAP Progress Note Assessment/Plan: Assessment: L hand abscess 2/2 cat bite, I&D'd night -appearance of the hand is clinically improving Plan: -appreciate care of hospitalist service -IV unasyn -cultures growing Pasteurella, also has + BC -cont soaks -f/u in clinic one week after d/c -he is instructed to cont soaks as performed in the hospital while at home -I instructed to pt to work on finger ROM at home -I will cont to follow the pt in the hospital 03/27/17 11:46 03/27/17 11:50 Subjective: Pain in the hand improving. His finger motion is improving as well. Cx grew Pasteurella, bcx with G+ cocci Objective: Vital Signs Temp Pulse Resp BP Pulse Ox 36.0 C 67 16 130/76 H 92 03/27/17 11:43 03/27/17 11:43 03/27/17 11:43 03/27/17 11:43 03/27/17 11:43 03/26/17 03/27/17 03/28/17 05:59 05:59 05:59 Intake Total 2030 Balance 2030 L hand -incision sites open without purulent drainage -nearly able to fully extend fingers, AROM and PROM of fingers markedly improved -erythema nearly resolved - Time Spent With Patient Time Spent With Patient: 15 min ICD10 Worksheet Patient Problems: Problems Problem Status Onset Cat bite of hand Acute Cellulitis of left hand Acute
[2017-03-27] MEDS: NICOTINE 21 MG/24 HR PATCH TD SCH (13:13)
--- NOTE | 2017-03-27 14:26 | HOSPPROG ---
Hospitalist Progress Note Assessment/Plan: 56 yo M w/ CAD and ?COPD presents with cellulitis of L hand 2/2 cat bite. Plan: 1. L hand cellulitis - 2/2 cat bite hand is improving IV unasyn, cont until blood cultures clear cultures growing Pasteurella, also has + BC cont soaks f/u in clinic one week after d/c work on finger ROM at home 2. CAD - Reports hx of [place] about 9 years ago, has been doing well since. Compliant with ASA and statin. 3. ?COPD - Patient denies formal dx but has 25+ year smoking history and takes Combivent QID. 4. Tobacco abuse - Smokes 1/2 PPD 5. Depression - Well controlled, compliant with home meds. part of [facility] work with SW to assure he can reenter the program Diet - Regular Code - Full Ppx - SCDs Dispo - change to inpt requires further monitoring and IV abx Subjective: Feeling ok. Still having some pain in hand. Objective: Vital Signs Temp Pulse Resp BP Pulse Ox 36.0 C 67 16 130/76 H 92 03/27/17 11:43 03/27/17 11:43 03/27/17 11:43 03/27/17 11:43 03/27/17 11:43 03/26/17 03/27/17 03/28/17 05:59 05:59 05:59 Intake Total 2029 Balance 2029 - Physical Exam Constitutional: no apparent distress, appears nourished, uncomfortable Eyes: PERRL, anicteric sclera, EOMI Ears, Nose, Mouth, Throat: moist mucous membranes, hearing normal, ears appear normal Cardiovascular: regular rate and rhythym, No JVD, No edema Respiratory: no respiratory distress, no rales or rhonchi, reduced air movement Gastrointestinal: normoactive bowel sounds, No tenderness, No ascites Skin: warm, erythema, No mottled Musculoskeletal: full muscle strength, joint tenderness, pain with ROM Neurologic: AAOx3 Psychiatric: interacting appropriately, poor insight, poor judgement, poor memory ICD10 Worksheet Patient Problems: Problems Problem Status Onset Cellulitis of left hand Acute Cat bite of hand Acute
[2017-03-27] MEDS: ATORVASTATIN CALCIUM 40 MG TAB PO SCH (21:08)
[2017-03-28] MEDS: AMPICILLIN/SULBACTAM 3 GM in NS 100 ML IV SCH ×4 (05:58→23:17)
[2017-03-28] MEDS: IPRATROPIUM/ALBUTEROL 4GM MDI IH SCH ×4 (06:04→21:54)
[2017-03-28] MEDS: HYDROGEN PEROXIDE 236 ML BOTTLE TP SCH ×3 (09:03→21:55)
[2017-03-28] MEDS: CITALOPRAM 20 MG TAB PO SCH (09:03)
[2017-03-28] MEDS: ASPIRIN EC 81 MG TAB PO SCH (09:04)
[2017-03-28] MEDS: buPROPion SR 150 MG TAB PO SCH (09:04)
[2017-03-28] MEDS: ARIPiprazole 10 MG TAB PO SCH (09:04)
[2017-03-28] MEDS: NICOTINE 21 MG/24 HR PATCH TD SCH (09:06)
--- NOTE | 2017-03-28 12:15 | HOSPPROG ---
Hospitalist Progress Note Assessment/Plan: 56 yo M w/ CAD and ?COPD presents with cellulitis of L hand 2/2 cat bite. Plan: 1. L hand cellulitis - 2/2 cat bite hand is significantly improving IV unasyn transition to PO in am for likely DC cultures growing Pasteurella, also has + BC which are likely contaminate repeat cultrues pending cont soaks f/u in clinic one week after d/c work on finger ROM at home 2. CAD - Reports hx of [place] about 9 years ago, has been doing well since. Compliant with ASA and statin. 3. ?COPD - Patient denies formal dx but has 25+ year smoking history and takes Combivent QID. 4. Tobacco abuse - Smokes 1/2 PPD 5. Depression - Well controlled, compliant with home meds. part of [facility] work with SW to assure he can reenter the program Diet - Regular Code - Full Ppx - SCDs Dispo -follow cultures DC in am with PO abx work with SW to get good DC plan requires further monitoring and IV abx Subjective: Feeling better. Hand still throbs but less. Objective: Vital Signs Temp Pulse Resp BP Pulse Ox 36.5 C 81 16 124/71 H 95 03/28/17 09:07 03/28/17 09:07 03/28/17 09:07 03/28/17 09:07 03/28/17 09:07 03/27/17 03/28/17 03/29/17 05:59 05:59 05:59 Intake Total 2029 2224 Balance 2029 2224 - Physical Exam Constitutional: appears nourished, chronically ill appearing Eyes: PERRL, anicteric sclera Ears, Nose, Mouth, Throat: moist mucous membranes, hearing normal Cardiovascular: No JVD, No edema Respiratory: no respiratory distress, reduced air movement Gastrointestinal: No tenderness, No ascites Skin: warm, normal color Musculoskeletal: joint tenderness, pain with ROM Neurologic: AAOx3 Psychiatric: interacting appropriately, not anxious, not encephalopathic ICD10 Worksheet Patient Problems: Problems Problem Status Onset Cellulitis of left hand Acute Cat bite of hand Acute
--- NOTE | 2017-03-28 14:34 | SOAPPROG ---
SOAP Progress Note Assessment/Plan: Assessment: L hand abscess 2/2 cat bite, I&D'd night -hand doing markedly better today. ROM nearly back to normal Plan: -appreciate care of hospitalist service -Abx per hospitalist -cultures growing Pasteurella -cont soaks -f/u in clinic one week after d/c -he is instructed to cont soaks as performed in the hospital while at home -I instructed to pt to work on finger ROM at home -D/c tmrw if pt cont to improve on PO abx. 03/28/17 14:31 03/28/17 14:33 Subjective: He is doing much better today. Hand and finger motion is nearly back to normal. Only throbs when his arm is down at his side Objective: Vital Signs Temp Pulse Resp BP Pulse Ox 36.5 C 81 16 124/71 H 95 03/28/17 09:07 03/28/17 09:07 03/28/17 09:07 03/28/17 09:07 03/28/17 09:07 03/27/17 03/28/17 03/29/17 05:59 05:59 05:59 Intake Total 2029 2224 Balance 2029 2224 Exam: L hand -erythema resolved -no purulent drainage from I&D sites -full AROM of digits - Time Spent With Patient Time Spent With Patient: 10 min ICD10 Worksheet Patient Problems: Problems Problem Status Onset Cat bite of hand Acute Cellulitis of left hand Acute
[2017-03-28] MEDS: ATORVASTATIN CALCIUM 40 MG TAB PO SCH (21:54)
[2017-03-29] MEDS: IPRATROPIUM/ALBUTEROL 4GM MDI IH SCH ×3 (05:52→16:49)
[2017-03-29] MEDS: AMPICILLIN/SULBACTAM 3 GM in NS 100 ML IV SCH ×2 (05:52→12:00)
[2017-03-29] MEDS: HYDROGEN PEROXIDE 236 ML BOTTLE TP SCH ×2 (05:53→14:22)
[2017-03-29 07:59] VITALS: BP 126/71; PULSE 77; RESP 18; TEMP 97.9; O2SAT 95
[2017-03-29] MEDS: NICOTINE 21 MG/24 HR PATCH TD SCH (09:04)
[2017-03-29] MEDS: ASPIRIN EC 81 MG TAB PO SCH (09:05)
[2017-03-29] MEDS: ARIPiprazole 10 MG TAB PO SCH (09:05)
[2017-03-29] MEDS: buPROPion SR 150 MG TAB PO SCH (09:06)
[2017-03-29] MEDS: CITALOPRAM 20 MG TAB PO SCH (09:13)
[2017-03-29] MEDS ORDERED: AMPICILLIN/SULBACTAM 3 GM in STERILE WATER INJ 8 ML IV SCH (18:00)
--- NOTE | 2017-03-30 09:11 | GDS ---
[f rep st] DISCHARGE SUMMARY DISCHARGE DIAGNOSES: 1. Left hand cellulitis secondary to cat bite. 2. History of coronary artery disease. 3. Depression. 4. Tobacco abuse. CONSULTATIONS: Marcio Herrera MD of Orthopedics. STUDIES AND PROCEDURES DONE: I and D of the left hand. PHYSICAL EXAM: GENERAL: The patient is alert. VITAL SIGNS: Afebrile at 36.6, pulse is 77, respira tory rate is 18, blood pressure is 126/71, he is saturating 95% on room air. I have seen and evaluat ed the patient on the day of discharge. HOSPITAL COURSE: The patient is a 56-year-old male, who presented to the emergency room with complai nt of left hand pain. He was evaluated and diagnosed with: 1. Left hand cellulitis secondary to cat bite. During this hospitalization, he received a consultat ion from Orthopedics. An incision and drainage was performed of the patient's left hand. Cultures g rowing pasteurella. He was treated with IV Unasyn during this hospitalization and has been transitio juan c to oral Augmentin for the outpatient setting. He will continue this antibiotic as an outpatient with followup being with Dr. Herrera for further resolution assurance. 2. Coronary artery disease. This is stable. The patient will continue his aspirin as well as a sta tin as previously prescribed. 3. Tobacco abuse. He has received a patch during this hospitalization without smoking during this h ospital course, and smoking cessation education provided. 4. History of depression. This is stable. His home medications have been continued and he is well controlled. DISPOSITION: The patient will be discharged. Followup from the hospital, Case Management has been w orking with him. A taxi voucher has been provided. FOLLOWUP: Followup will be with Dr. Herrera in 1 week, as well as the patient's primary care provider, Ananth Tobar [facility]. There are no pending studies. DISCHARGE MEDICATIONS: Again, the patient has been prescribed Augmentin at the time of disposition. I have not adjusted any of his previously prescribed other home medications, to the best of my knowl edge. I spent greater than 35 minutes with the care, management and disposition of this patient. /[id number]/MODL
== END 2017-03-29 18:00 | disposition home or self-care (01) | DRG 603 ==
LOC: INTOOBSV 22:13 → FOB 03-26 08:41 → OBSVTOIN 03-26 15:25
PROVIDERS: ADMIT Student in an Organized Health Care Education/Training Program; ATTEND Internal Medicine
PROC: 0HDGXZZ Extraction of Left Hand Skin, External Approach (ICD-10-PCS; principal; 2017-03-25)
DX: L03.114 Cellulitis of left upper limb (principal); S61.452A Open bite of left hand, initial encounter; A28.0 Pasteurellosis; W55.01XA Bitten by cat, initial encounter; J44.9 Chronic obstructive pulmonary disease, unspecified; I10 Essential (primary) hypertension; F43.10 Post-traumatic stress disorder, unspecified; F32.9 Major depressive disorder, single episode, unspecified; F17.210 Nicotine dependence, cigarettes, uncomplicated; I25.10 Atherosclerotic heart disease of native coronary artery without angina pectoris; I25.2 Old myocardial infarction; Z79.82 Long term (current) use of aspirin
CPT/HCPCS: G0378; J0295